=== PATIENT | female | born 1950 | race Caucasian/White ===

== ENCOUNTER 2019-09-05 09:22 | Day surgery (SDC) | payer MEDICARE, BC ==
[~2019-09-05] VITALS: Ht 162.6 cm; Wt 81.4 kg
[2019-09-05 09:48] LABS: HEMATOCRIT 40.7 % (36.0-48.0); HEMOGLOBIN 13.3 g/dL (12-16); MCHC 32.7 g/dL (31.0-37.0); MCV 88.7 fL (80.0-100.0); MEAN PLATELET VOLUME 9.8 fL (7.4-10.4); RBC 4.59 10x6/uL (4.00-5.40); RDW 13.1 % (11.5-14.5)
[2019-09-05] MEDS ORDERED: SYNTHROID88 MCG PO (10:07)
[2019-09-05] MEDS ORDERED: PREVACID15 MG PO (10:09)
[2019-09-05] MEDS ORDERED: VALTREX500 MG PO (10:10)
[2019-09-05 10:21] VITALS: Ht 162.6 cm; Wt 81.4 kg
--- NOTE | 2019-09-05 12:25 | NUR ---
LEFT HAND PIV DC'D WITH TIP INTACT. DISCHARGE INSTRUCTIONS REVIEWED WITH PATIENT AND SPOUSE, PATIENT DRESSING IN PERSONAL CLOTHING. 1232 DISCHARGED HOME VIA WHEELCHAIR TO PRIVATE VEHICE WITH SPOUSE
--- NOTE | 2019-09-05 20:17 | OP ---
PATIENT NAME: DRE GARCIA MEDICAL RECORD: [id number] :50 [facility]ATION:[facility] ADMISSION DATE: SURGEON: RHYS FERNANDEZ DO DATE OF OPERATION: 09/05/2019 PROCEDURE: Colonoscopy with polypectomy. INDICATIONS FOR PROCEDURE: Gas and bloating, hematochezia, left-sided abdominal pain. SCOPE: Olympus video pediatric colonoscope. MEDICATIONS: Propofol 400 mg IV per anesthesia. WITHDRAWAL TIME: 12 minutes. ESTIMATED BLOOD LOSS: Minimal. COMPLICATIONS: None. FINDINGS AND DESCRIPTION OF PROCEDURE: Informed consent was given. The patient was made comfortable with the above medication. After reaching an adequate level of sedation by slow IV push, the patient was placed on her left side. A digital rectal examination was performed and was normal. The endoscope was advanced under direct visualization through the rectum to the cecum, confirmed by the presence of the appendiceal orifice and ileocecal valve. The endoscope was slowly withdrawn and mucosa was carefully examined. The prep quality was good. There was a single benign-appearing sessile polyp located in the ascending colon, which measured approximately 3-4 mm in diameter. It was removed using cold forceps. There was evidence of moderate diverticulosis involving the distal transverse colon, descending colon, and sigmoid colon. Retroflexion was performed in the rectum with visualization of grade I internal hemorrhoids without bleeding. The endoscope was withdrawn from the patient. The patient tolerated the procedure well and there were no complications. IMPRESSION: 1. A single benign-appearing polyp located in the ascending colon, status post cold forceps polypectomy. 2. Moderate diverticulosis of the left side of the colon. 3. Grade I internal hemorrhoids without bleeding. PLAN AND RECOMMENDATIONS: 1. Discharge home when recovery parameters are met. 2. Follow up biopsy specimen results. 3. High fiber diet. 4. Consider supplementing diet with 1 tablespoon of fiber daily. 5. Continue current medications. 6. Recall colonoscopy in 5 years. 7. Proceed with upper endoscopy as scheduled. TRANSINT:[id number] Voice Confirmation ID: [id number] DOCUMENT ID: [id number] OPERATIVE REPORT [id number] DRE GARCIA RHYS FERNANDEZ DO at 2017 CC: [id number] DICTATION DATE: 09/05/19 1144 TERRITORY SERVICE REPRESENTATIVE: 09/05/19 1556 [facility] 09/05/19 [facility] [address] [id number]
== END 2019-09-05 12:32 | disposition home or self-care (01) ==
LOC: D.OPS 09:22
PROVIDERS: Anesthesiology; ATTEND Internal Medicine Gastroenterology
DX: R14.0 Abdominal distension (gaseous) (principal); K92.1 Melena; R10.9 Unspecified abdominal pain; E07.9 Disorder of thyroid, unspecified; K21.9 Gastro-esophageal reflux disease without esophagitis